=== PATIENT | female | born 1990 | race Caucasian/White ===

== ENCOUNTER 2017-07-30 07:05 | Inpatient (IN) | payer BC, MEDICAID ==
[~2017-07-30] VITALS: Ht 160 cm; Wt 85.3 kg
--- NOTE | ~2017-07-30 | HP ---
ADMIT: 07/30/2017 RM/LOC: [address] [facility] MR#: [id number] [id number] [facility] [address] [place] [id number] JASON WALKERICA Jose Antonio [address] [facility] [address] History and Physical SEX: F AGE: 27 : 1990 DATE OF SERVICE: CHIEF COMPLAINT: Induction of labor. HISTORY OF PRESENT ILLNESS: The patient is a 27-year-old 2, para 1-0- 0-1, with intrauterine at 39 and 6/7 weeks by a 7-week ultrasound, who presents to Labor and Delivery for induction of labor at term secondary to history of gestational hypertension. PAST MEDICAL HISTORY: 1. Overweight. 2. Excessive weight gain during . 3. Depression. 4. Short interval between pregnancies. 5. Pituitary microadenoma with history of hyperprolactinemia. 6. History of gestational hypertension in previous . PAST SURGICAL HISTORY: Myringotomy with tube placement. SOCIAL HISTORY: The patient denies alcohol, tobacco, or illicit drug use. She is to [place] and a [id number] mom. MEDICATIONS: 1. vitamins one tablet p.o. daily. 2. Aspirin 81 mg p.o. daily. 3. Zoloft 50 mg one tablet p.o. daily. 4. Unisom 25 mg p.o. at bedtime p.r.n. ALLERGIES: HYDROCODONE AND ACETAMINOPHEN, WHICH CAUSES VOMITING. REVIEW OF SYSTEMS: The patient denies vaginal bleeding, loss of fluid, uterine contractions, or decreased movement. OBSTETRICAL LABS: Blood type O positive, antibody screen negative, RPR nonreactive, rubella immune, HIV negative, gonorrhea and chlamydia negative, hepatitis B surface antigen negative, diabetic screen 90, group B strep negative. PHYSICAL EXAMINATION: GENERAL: A well-developed, well-nourished white female, alert and oriented x3, in no acute distress. VITAL SIGNS: Blood pressure is 120s over 80s to 90s, pulse 80s to 90s, respirations 16, temperature 98.7 degrees Fahrenheit. Height 5 feet 3 inches, weight 188 pounds. HEENT: Head is normocephalic and atraumatic. Pupils are equal and round. Extraocular muscles are intact. NECK: Supple. Trachea midline. Thyroid, not palpable. HEART: Regular rate and rhythm. LUNGS: Clear to auscultation bilaterally. ABDOMEN: Soft, nontender, and gravid. ADMIT: 07/30/2017 RM/LOC: [address] [facility] MR#: [id number] [address] [id number] SFOI WALKER [address] [place] [address] [place] [address] History and Physical SEX: F AGE: 27 : 1990 EXTREMITIES: No clubbing, cyanosis, or edema. NEUROLOGIC: Cranial nerves II through XII grossly intact. 2+ deep tendon reflexes noted. PELVIC: Sterile vaginal examination by the nurse on admission reveals the cervix to be 2.5 cm dilated, 60% effaced, -1 station. heart tones are in the 120s with 15 x 15 accelerations, moderate long-term variability, and no decelerations. Irregular uterine contractions are noted on the monitor. ASSESSMENT AND PLAN: 1. This is a 27-year-old 2, para 1-0-0-1, with an intrauterine at 39 and 6/7 weeks by a 7-week ultrasound, who presents to Labor and delivery for induction of labor at term. 2. Group B strep negative. No prophylaxis will be provided. 3. Fetus is vertex and overall reassuring. Gail Anderson MD/ pérez JOB #: [id number] CC: Gail Anderson, Attending Physician Gail Anderson, Family Physician
[~2017-07-30 07:05] MED LIST: FOLVITE-DPS1 MG PO; MOTRIN-DPS800 MG PO; PRENATAL VIT1 TAB PO; TYLENOL #3 DPS1 TAB PO; ULTRAM DPS50 MG PO; VITAMIN B1100 MG PO
--- NOTE | 2017-08-01 07:29 | OR ---
ADMIT: 07/30/2017 RM/LOC: 227 [facility] MR#: [id number] [address] [address] JASON WALKERICA Jose Antonio [address] [facility] [place] [address] Operative/Delivery Room Report SEX: F AGE: 27 : 1990 SURGERY DATE: 07/30/2017 SURGEON: Gail Anderson MD The patient delivered a viable male by spontaneous vaginal delivery at 1723 hours. A nuchal cord x1 was reduced. The infant was placed on the mother's abdomen, the cord was doubly clamped and cut. The was handed off to the awaiting nurse. Cord blood was sent. The infant's weight was 3420 g. scores were 3, 7, and 9. The placenta then delivered spontaneously intact with a three-vessel cord. Thirty units of Pitocin were infused with intravenous fluids. An examination of perineum revealed no lacerations. Estimated blood loss for the entire procedure was 100 mL. The patient and are in her room in stable condition. The epidural catheter was removed intact without difficulty at the conclusion of the procedure. Gail Anderson MD/ pérez JOB #: [id number] CC: Gail Anderson, Attending Physician Gail Anderson, Family Physician
[2017-08-02] MEDS ORDERED: ZOLOFT50 MG PO (18:56)
[2017-08-02] MEDS ORDERED: NIPPLECREAM TP (18:56)
[2017-08-02] MEDS ORDERED: COLACE-DPS100 MG PO (18:56)
--- NOTE | 2017-08-03 09:12 | DS ---
ADMIT: 07/30/2017 RM/LOC: 227 [facility] MR#: [id number] [address] [place] [id number] SOFI WALKER [address] [facility] [place] [address] General Discharge Summary SEX: F AGE: 27 : 1990 ADMISSION DATE: 07/30/2017 DISCHARGE DATE: 08/01/2017 ADMISSION DIAGNOSES: 1. A 27-year-old, 2, para 1, with intrauterine at 39 weeks 6 days. 2. Induction of labor at term for history of gestational hypertension. DISCHARGE DIAGNOSIS: Status post spontaneous vaginal delivery without complications. PHYSICIAN: Gail Anderson MD PROCEDURES PERFORMED: During admission, spontaneous vaginal delivery. Epidural catheter placement and removal following delivery. HISTORY AND PHYSICAL EXAMINATION: See full dictated H and P for details. In brief, the patient is a 27-year-old, G2, P1, with intrauterine at 39 weeks 6 days, is admitted for induction of labor. Her cervix was found to be favorable, and she was started Pitocin. HOSPITAL COURSE: The patient is admitted to Labor and Delivery, started on Pitocin for induction. Her labor progressed normally. She delivered a viable male infant weighing 3420 g. scores were 3, 7, and 9. did have a nuchal cord upon presentation, which was reduced. Please see operative report for further details about the delivery. , the patient did well without any issues. Bleeding was controlled. She was ambulating, eating, and bowels were functional. She was discharged home on postop day 2. DISPOSITION: Discharged to home. ADMIT: 07/30/2017 RM/LOC: 227 [facility] MR#: [id number] [address] [place] [id number] SOFI WALKER Jose Antonio [address] [place] [address] General Discharge Summary SEX: F AGE: 27 : 1990 DISCHARGE CONDITION: Good. DISCHARGE MEDICATIONS: 1. Colace 100 mg p.o. b.i.d. 2. Motrin 800 mg q.8 hours p.r.n. 3. Guaman's nipple cream to nipples every 1 to 2 hours as needed. 4. Resume vitamin. FOLLOWUP: The patient will follow up in clinic in [address] Anderson. She is to avoid lifting greater than 10 pounds and maintain pelvic rest for the next 6 weeks. Normal precautions given. Oc Pisano MD Resident / Gail Anderson MD / jerodl JOB #: [id number] CC: Gail Anderson MD, Attending Physician Gail Anderson MD, Family Physician
== END 2017-08-01 13:45 | disposition home or self-care (01) | DRG 775 ==
LOC: 2LDRP 07:05 → BC 07:05 → 2LDRP 07:53 → BC 07-31 08:00 → 2LDRP 08-01 13:45
PROVIDERS: ADMIT Obstetrics & Gynecology
PROC: 3E033VJ Introduction of Other Hormone into Peripheral Vein, Percutaneous Approach (ICD-10-PCS; principal; 2017-07-30)
PROC: 10907ZC Drainage of Amniotic Fluid, Therapeutic from Products of Conception, Via Natural or Artificial Opening (ICD-10-PCS; principal; 2017-07-30)
PROC: 3E0234Z Introduction of Serum, Toxoid and Vaccine into Muscle, Percutaneous Approach (ICD-10-PCS; principal; 2017-07-30)
PROC: 10E0XZZ Delivery of Products of Conception, External Approach (ICD-10-PCS; principal; 2017-07-30)
DX: O69.81X0 Labor and delivery complicated by cord around neck, without compression, not applicable or unspecified (principal); O99.344 Other mental disorders complicating childbirth; F32.9 Major depressive disorder, single episode, unspecified; O26.03 Excessive weight gain in pregnancy, third trimester; Z23 Encounter for immunization; Z79.82 Long term (current) use of aspirin; Z3A.39 39 weeks gestation of pregnancy; Z37.0 Single live birth